=== PATIENT | male | born 1980 | race Hispanic/Latino ===

== ENCOUNTER → 2019-01-22 | Day surgery (SDC) | payer OTHER ==
[2019-01-21 11:59] LABS: BASOPHILS # (AUTO) 0.1 (0.0-0.1); BASOPHILS % 0.7 % (0.0-1.0); EOSINOPHILS # (AUTO) 0.2 (0.0-0.4); EOSINOPHILS % 2.5 % (0.0-6.0); HEMATOCRIT 43.2 % (38.2-49.6); HEMOGLOBIN 14.7 g/dL (14.0-18.0); LYMPHOCYTES # (AUTO) 2.8 (1.0-3.2); LYMPHOCYTES % 39.6 % (18.0-39.1); MEAN CORPUSCULAR HEMOGLOBIN 32.1 pg (28-32); MEAN CORPUSCULAR VOLUME 94.3 fL (81-99); MONOCYTES # (AUTO) 0.6 (0.2-0.8); MONOCYTES % 8.6 % (4.4-11.3); NEUTROPHILS # (AUTO) 3.5 (2.1-6.9); PLATELET COUNT 331 x10e3/uL (140-360); RED BLOOD COUNT 4.58 x10e6/uL (4.3-5.7); RED CELL DISTRIBUTION WIDTH 12.4 % (11.7-14.4)
--- NOTE | 2019-01-21 12:48 | Diagnostic Imaging Report ---
EXAM: CHEST 2 VIEWS DATE: 01/21/2019 10:53 AM INDICATION: Hallux valgus, left foot pain, preoperative evaluation COMPARISON: None FINDINGS: The trachea is midline. The lungs are symmetrically expanded without evidence for large focal consolidation, pneumothorax, or significant pleural effusion. The cardiomediastinal silhouette and pulmonary vasculature are within normal limits. No acute osseous abnormality is identified. The surrounding soft tissues are unremarkable. IMPRESSION: No acute cardiopulmonary process identified. Signed by: Dr. Dangelo Williamson MD on 01/21/2019 12:45 PM
[~2019-01-22] MED LIST: ACETAMINOPHEN 1000 MG/100 ML IV ONE; BETAMETHASONE DISODIUM PHOS 6 MG/ML VIAL ONE; BUPIVACAINE HCL 0.25% 10ML MPF VIAL INJ ONE; BUPIVACAINE HCL 0.5% INJ 30 ML VIAL INJ ONE; CEFAZOLIN SOD 1 GM/NS 50ML 50 ML IV ONE; DEXAMETHASONE SOD PHOS INJ 4 MG/ML VIAL ONE; FENTANYL CITRATE/PF 100MCG/2 ML INJ ONE; IBUPROFEN400 MG PO; KETOROLAC TROMETHAMINE 30 MG/ML VIAL ONE; LIDOCAINE HCL 1% LOCAL INJ 20 ML VIAL ONE; LISINOPRIL10 MG PO; MIDAZOLAM HCL 2 MG/2 ML VIAL ONE; MUPIROCIN 2% OINT 22 GM TUBE ONE; ONDANSETRON HCL INJ 2MG/ML 2ML 2 MG/ML VIAL ONE; SEVOFLURANE INHAL SOLN 250 ML PEN BTL ONE
--- OUTSIDE RECORDS SUMMARY | 2019-01-22 05:16 | XMS REPORT | Clinical Summary ---
Author Author [facility] Address Unknown Phone Unavailable Care Team Providers Care Clinical Appeals Rn Name Role Phone Lissette Rashid NP PCP Allergies Not on File Medications Not on file Active Problems Not on file Encounters Care Team Description Date Type Specialty Catrachito Munoz MD Kreit, Camil I, MD Lifelong obesity; Mixed hyperlipidemia; Type II diabetes mellitus with coma, uncontrolled; Essential hypertension, malignant 01/27/2018 Hospital Radiology Encounter Catrachito Munoz MD Lifelong obesity (Primary Dx); Mixed hyperlipidemia; Type II diabetes mellitus with coma, uncontrolled; Essential hypertension, malignant 01/23/2018 Transcribe Access Orders after 01/21/2018 Social History Date Tobacco Use Types Packs/Day Years Used Never Assessed Sex Assigned at Date Recorded Not on file Industry Job Start Date Occupation Not on file Not on file Not on file Travel End Travel History Travel Start No recent travel history available. Last Filed Vital Signs Not on file Plan of Treatment Health Maintenance Due Date Last Done Comments DIABETIC RETINAL EYE EXAM 1978 DIABETIC FOOT EXAM 1988 URINE MICROALBUMIN 1988 INFLUENZA VACCINE 12/18/2018 Procedures Comments Procedure Name Priority Date/Time Associated Diagnosis CT ABDOMEN W CONTRAST Routine 01/27/2018 Lifelong obesity 9:50 AM CDT Mixed hyperlipidemia Type II diabetes mellitus with coma, uncontrolled Essential hypertension, malignant after 01/21/2018 Results * CT Abdomen W Contrast (01/27/2018 9:50 AM CDT) Specimen Narrative Performed At EXAMINATION:CT ABDOMEN W CONTRAST [facility] CLINICAL HISTORY:E66.9 Obesityunspecified, E78.2 Mixed hyperlipidemia, E66.9 TECHNIQUE:Multiple axial images of the abdomen were obtained following intravenous administration of iodinated contrast. Sagittal and coronal computerized reformatted images were also obtained. CT scans are performed using radiation dose reduction techniques. Technical factors are evaluated and adjusted to ensure appropriate moderation of exposure. Automated dose management technology is applied to adjust radiation exposure while achieving a diagnostic quality image. COMPARISON:None. LUNG BASES: No suspicious lung nodule. Minimal atelectasis. No pleural effusion. Partially seen heart is within normal limits. ABDOMEN: 1. Liver: Liver is normal in size and contour. A 4 mm hypodensity in the liver segment 6 on series 2 image 53 is too small to characterize. No intrahepatic biliary ductal dilation. 2. Gallbladder: Gallbladder is normal in appearance. No extrahepatic biliary ductal dilation. 3. Spleen: Spleen is normal in size. 4. Pancreas: Pancreas is normal in appearance. No ductal dilation or evidence for mass lesion. 5. Adrenal Glands: Adrenals are normal in appearance. 6. Kidneys: Kidneys are normal in appearance. No mass lesion, hydronephrosis, or nephrolithiasis. 7. Nodes: No enlarged abdominal, mesenteric or retroperitoneal lymph node. 8. Bowel: Stomach, small bowel and colon are without acute anatomic abnormality. Appendix is normal. 9. Peritoneum: No free fluid or free air. No peritoneal nodules. 10.Retroperitoneum: Psoas muscles are symmetric. No retroperitoneal hemorrhage, fluid collection, or mass lesion. 11.Aorta: No aneurysm. PELVIS: 1.Bladder: Bladder is normal in apperance.. 2.: Prostate is possibly slightly enlarged at 3.5 x 5.2 cm. Seminal vesicles are within normal limits symmetric. 3.Nodes: No enlarged pelvic or inguinal lymph node. 4.Free Fluid: No pelvic free fluid. BONES: No destructive bone lesion. IMPRESSION: 1.No acute abdominopelvic process is appreciated. I personally reviewed the images and the resident's findings and agree with the final report. [facility]-[id number] Procedure Note [facility], Radiology Results Incoming - 01/27/2018 10:43 AM CDT EXAMINATION: CT ABDOMEN W CONTRAST CLINICAL HISTORY: E66.9 Obesity unspecified, E78.2 Mixed hyperlipidemia, E66.9 TECHNIQUE: Multiple axial images of the abdomen were obtained following intravenous administration of iodinated contrast. Sagittal and coronal computerized reformatted images were also obtained. CT scans are performed using radiation dose reduction techniques. Technical factors are evaluated and adjusted to ensure appropriate moderation of exposure. Automated dose management technology is applied to adjust radiation exposure while achieving a diagnostic quality image. COMPARISON: None. LUNG BASES: No suspicious lung nodule. Minimal atelectasis. No pleural effusion. Partially seen heart is within normal limits. ABDOMEN: 1. Liver: Liver is normal in size and contour. A 4 mm hypodensity in the liver segment 6 on series 2 image 53 is too small to characterize. No intrahepatic biliary ductal dilation. 2. Gallbladder: Gallbladder is normal in appearance. No extrahepatic biliary ductal dilation. 3. Spleen: Spleen is normal in size. 4. Pancreas: Pancreas is normal in appearance. No ductal dilation or evidence for mass lesion. 5. Adrenal Glands: Adrenals are normal in appearance. 6. Kidneys: Kidneys are normal in appearance. No mass lesion, hydronephrosis, or nephrolithiasis. 7. Nodes: No enlarged abdominal, mesenteric or retroperitoneal lymph node. 8. Bowel: Stomach, small bowel and colon are without acute anatomic abnormality. Appendix is normal. 9. Peritoneum: No free fluid or free air. No peritoneal nodules. 10. Retroperitoneum: Psoas muscles are symmetric. No retroperitoneal hemorrhage, fluid collection, or mass lesion. 11. Aorta: No aneurysm. PELVIS: 1. Bladder: Bladder is normal in apperance.. 2. : Prostate is possibly slightly enlarged at 3.5 x 5.2 cm. Seminal vesicles are within normal limits symmetric. 3. Nodes: No enlarged pelvic or inguinal lymph node. 4. Free Fluid: No pelvic free fluid. BONES: No destructive bone lesion. IMPRESSION: 1. No acute abdominopelvic process is appreciated. I personally reviewed the images and the resident's findings and agree with the final report. [facility]-[id number] Performing Organization Address City/State/Zipcode Phone Number [facility] [address] [place] [address] after 01/21/2018 Insurance Type Payer Benefit Subscriber ID Effective Phone Address Plan / Dates Group HMO AETNA AETNA xxxxxxxxxx 2007- HMO,POS,EP Present O, MC/EC Advance Directives For more information, please contact: [phone] Patient Ethologist Explanation Type Date Recorded Advance Directives, Living Will and Medical Power of Auditor Medical Claims
--- OUTSIDE RECORDS SUMMARY | 2019-01-22 05:16 | XMS REPORT ---
Author [facility] Address Unknown Phone Unavailable Care Team Providers Care Reporter Name Role Phone NELL HERRERA Unavailable Unavailable Problems This patient has no known problems. Allergies, Adverse Reactions, Alerts This patient has no known allergies or adverse reactions. Medications This patient has no known medications. Results Test Description Test Time Test Comments Text Results Atomic Results Result Comments CHEST 2 VIEWS 2019-01-21 12:44:00 [place] [address] Patient Name: BAKARI TOSCANO MR #: [id number] : 1980 Age/Sex: 38/M Req #: [id number] Adm Physician: Ordered by: NELL HERRERA DPM Report #: [id number] Location: OR Room/Bed: Procedure: [id number] DX/CHEST 2 VIEWS Exam Date: 01/21/19 Exam Time: 1147 REPORT STATUS: Signed EXAM: CHEST 2 VIEWS DATE: 01/21/2019 10:53 AM I NDICATION: Hallux valgus, left foot pain, preoperative evaluation COMPARISON: None FINDINGS: The trachea is midline. The lungs are symmetrically expanded without evidence for large focal consolidation, pneumothorax, or significant pleural effusion. The cardiomediastinal silhouette and pulmonary vasculature are within normal limits. No acute osseous abnormality is identified. The surrounding soft tissues are unremarkable. IMPRESSION: No acute cardiopulmonary process identified. Signed by: Dr. Dangelo Williamson MD on 01/21/2019 12:45 PM Dictated By: DANGELO WILLIAMSON MD 1245 Transcribed By: BARB on 01/21/19 1245 COPY TO: NELL HERRERA DPM
[2019-01-22 09:50] VITALS: BP 146/93
--- NOTE | 2019-01-22 09:58 | Diagnostic Imaging Report ---
EXAMINATION: FOOT LEFT AP LAT INDICATION: Postoperative COMPARISON: None FINDINGS: There are post surgical findings of the distal left first metatarsal status post osteotomy and hardware fixation. Alignment is near-anatomic. No unexpected fracture. K wire fixation traverses the fourth interphalangeal joints. Drain in place. Overlying gauze material obscures fine bony detail. IMPRESSION: Postoperative findings of the left foot as above. Signed by: Phillip Nance MD on 01/22/2019 9:54 AM
--- NOTE | 2019-01-22 14:46 | Operative Report ---
DATE OF PROCEDURE: 01/22/2019 SURGEON: Alonzo Bradford DPM PREOPERATIVE DIAGNOSES: 1. Painful hallux valgus deformity, left foot. 2. Painful contracted hammertoes 4th digit, left. 3. Painful contracted hammertoes 5th digit, left. 4. Painful plantar fasciitis with heel spur syndrome, left foot. 5. Tarsal tunnel syndrome, left foot. POSTOPERATIVE DIAGNOSES: Confirmed. OPERATIVE PROCEDURES: 1. Fabien bunionectomy with screw fixation of left foot. 2. Arthroplasty 4th digit with K-wire fixation of 4th toe, left foot. 3. Arthroplasty 5th digit, left foot. 4. Resection of plantar calcaneal heel spur, left foot. 5. Neurolysis tibial nerve, left foot. 6. Neurolysis medial plantar nerve, left foot. 7. Neurolysis lateral plantar nerve, left foot. 8. Intraoperative use of fluoroscopy. 9. Trigger point shot of cortisone. 10. Application of posterior splint. ANESTHESIA: General. HEMOSTASIS: Pneumatic thigh tourniquet at 350 mmHg. PROCEDURE IN DETAIL: The patient was taken into the operating room and placed on the operating table in supine position. Following induction of general anesthesia by the anesthesiologist, Webril wraps were placed on the patient's left thigh, followed by application of left thigh tourniquet. The left lower extremity was then prepped and draped in the usual aseptic manner and following procedures then performed. Procedure #1: Fabien bunionectomy with screw fixation, left foot. Attention was directed to the dorsomedial aspect of the 1st MPJ, where a 6 cm linear incision was performed. Incision was deepened down to the joint capsule. Longitudinal capsulotomy was then performed exposing the dorsomedial exostosis of the 1st metatarsal head. Via the use of an oscillating saw, dorsomedial exostosis was excised from the operation site in toto. A V-osteotomy was then performed from medial to lateral. Capital fragment was then transpositioned laterally upon adequate surgical and anatomical reduction utilizing proper AO technique. A 2.0, 16 mm cortical screw in conjunction with a buried 0.045 K-wire was used to achieve stability of osteotomy site. A redundant bone medially was excised via the use of an oscillating saw and rotating bur. Procedures #2 and 3: Arthroplasty 4th and 5th digits with K-wire fixation of 4th. Attention was then directed to the dorsal aspect of 4th and 5th toes, where a 3 cm linear incision was performed. Incision was deepened down to the joint capsule. Transverse capsulotomy was then performed exposing the head of the proximal phalanx. Via the use of an oscillating saw, head of the proximal phalanxes were excised from the operation site in toto. All rough and bony edges were rasped smooth. Then, 4th toe was still noted to be contracted, so a 0.045 K-wire was introduced up to metatarsophalangeal joint to achieve proper anatomical reduction. Procedure #4: Resection of plantar calcaneal heel spur, left foot. Attention was then directed to the medial aspect of the left heel, where a 4 to 5 cm linear incision was performed. Incision was deepened down to the plantar fascia level. The medial one-half of the plantar fascia was then released exposing the plantar calcaneal heel spur. Via the use of a reciprocating bur, plantar calcaneal spur was excised from the operation site in toto. All rough and bony edges were rasped smooth and felt with the finger with no evidence of any type of bony protrusion. Procedures #5, 6, and 7: Neurolysis tibial nerve, neurolysis medial plantar nerve, and neurolysis lateral plantar nerve. Attention was then directed to the medial aspect of the left tarsal canal, where a curvilinear incision was performed down to the praneeth pedis. The incision was deepened down to the flexor retinaculum utilizing meticulous dissection. The flexor retinaculum was then cut and neurolysis of the tibial nerve was then performed via blunt dissection. The incision was deepened down to the praneeth pedis until the medial and lateral plantar nerves were divided and also neurolysis within the praneeth pedis itself. All areas were then copiously flushed with antibiotic solution and suction. Procedure #8: Intraoperative use of fluoroscopy was then used to make sure proper alignment and fixation was achieved. Closure was then obtained utilizing 3-0 Vicryl, 4-0 Vicryl, and 4-0 nylon for capsule, subcutaneous tissue, and skin respectively after properly and copiously flushing the areas with saline. Procedure #9: Trigger point shot of cortisone was then given to the 1st and 4th interspace of the left foot and also the left heel and medial tarsal canal. Then, approximately 15 to 20 mL of 0.5% plain Marcaine plus 10 mL of 1% Xylocaine plain were used to achieve local anesthesia of above-mentioned surgical areas. Sterile dressing was applied. Upon release of the thigh tourniquet, blood hyperemia was noted immediate to all digits of the patient's left foot. Prior to closure, a TLS drain was inserted into the heel area to prevent a hematoma formation. Procedure #10: Application of posterior splint. A properly placed posterior splint was then applied keeping the foot at 90 degrees with respect to the leg to try and prevent any postop complications. The patient was then transferred from the OR to recovery room with vital signs stable and neurovascular status intact. No intraoperative complications were encountered. Blood loss from the surgery was minimal. The patient to remain nonweightbearing with the aid of crutches, keep his foot elevated and is to apply an ice pack to the ankle joint area. SAL Barry/PILO /[id number]
== END | disposition home or self-care (01) ==
LOC: OR 05:09
PROVIDERS: ATTEND Podiatrist Foot Surgery
DX: M20.12 Hallux valgus (acquired), left foot (principal); M20.42 Other hammer toe(s) (acquired), left foot; M77.32 Calcaneal spur, left foot; M72.2 Plantar fascial fibromatosis; G57.52 Tarsal tunnel syndrome, left lower limb; G58.8 Other specified mononeuropathies; R73.03 Prediabetes; G47.33 Obstructive sleep apnea (adult) (pediatric); I10 Essential (primary) hypertension; Z01.810 Encounter for preprocedural cardiovascular examination; Z01.812 Encounter for preprocedural laboratory examination; Z01.818 Encounter for other preprocedural examination
CPT/HCPCS: 28035; 28119; 28285 ×2; 28296; 36415 ×2; 64704 ×2; 71046; 73620; 82948; 85025; 93005; J0131; J0690; J0720; J1100; J1885; J2001; J2250; J2405; J3010; C1713

== ENCOUNTER → 2019-04-29 | Day surgery (SDC) | payer OTHER ==
[2019-04-20 13:54] LABS: ANION GAP 11.4 mmol/L (8-16); BLOOD UREA NITROGEN 11 mg/dL (7-26); BUN/CREATININE RATIO 13 (6-25); CALCIUM 10.1 mg/dL (8.4-10.2); CARBON DIOXIDE 25 mmol/L (22-29); CHLORIDE 105 mmol/L (98-107); CREATININE, SERUM 0.88 mg/dL (0.72-1.25); EST GLOMERULAR FILTRATION RATE > 60 ML/MIN (60-); GLUCOSE 124 mg/dL (74-118); POTASSIUM 3.4 mmol/L (3.5-5.1); SODIUM 138 mmol/L (136-145)
[~2019-04-29] MED LIST changes: +ATORVASTATIN CA20 MG PO; -BUPIVACAINE HCL 0.25% 10ML MPF VIAL INJ ONE; +CEFAZOLIN SOD 1 GM/NS 50ML 100 ML IV ONE; -CEFAZOLIN SOD 1 GM/NS 50ML 50 ML IV ONE; +LIDOCAINE HCL 2% LOCAL INJ 5 ML SDV VIAL INJ ONE; +PROPOFOL IV EMULSION 10 MG/ML 20 ML VIAL ONE
--- NOTE | 2019-04-29 09:42 | Diagnostic Imaging Report ---
EXAM: FOOT RIGHT AP LAT DATE: 04/29/2019 9:06 AM INDICATION: Postoperative COMPARISON: None FINDINGS: There postsurgical changes the distal aspect of the first metatarsal with fixation hardware. Alignment is near anatomic. Fixation wire noted over the fourth digit. Surgical drainage catheter noted in place. There is no evidence for acute fracture. IMPRESSION: Postoperative changes of the right foot as detailed above. Signed by: Dr. Dangelo Williamson MD on 04/29/2019 9:38 AM
[2019-04-29 10:00] VITALS: BP 136/85
--- NOTE | 2019-04-29 11:04 | Operative Report ---
DATE OF PROCEDURE: 04/29/2019 SURGEON: Alonzo Bradford DPM PREOPERATIVE DIAGNOSES: 1. Painful hallux valgus deformity, right foot. 2. Painful contracted hammertoe, 4th digit, right foot. 3. Painful contracted hammertoe, 5th digit, right foot. 4. Painful plantar fasciitis with heel spur syndrome. 5. Painful tarsal tunnel syndrome. POSTOPERATIVE DIAGNOSES: Confirmed. OPERATIVE PROCEDURES: 1. Fabien bunionectomy with screw fixation, right foot. 2. Arthroplasty of 4th digit with K-wire fixation. 3. Arthroplasty of 5th digit. 4. Resection of plantar calcaneal heel spur. 5. Neurolysis, tibial nerve. 6. Neurolysis, medial plantar nerve. 7. Neurolysis, lateral plantar nerve. 8. Intraoperative use of fluoroscopy. 9. Trigger point shot of cortisone. 10. Application of posterior splint. ANESTHESIA: General. HEMOSTASIS: Pneumatic thigh tourniquet at 350 mmHg. PROCEDURE IN DETAIL: The patient was taken into the operating room and placed on the operating table in supine position. Following induction of general anesthesia by the anesthesiologist, Webril wraps were placed on the patient's right thigh, followed by application of right thigh tourniquet. The right lower extremity was then prepped and draped in the usual aseptic manner and following procedures were then performed: Procedure #1: Fabien bunionectomy with screw fixation, right foot. Attention was directed to the dorsal medial aspect of the 1st MPJ, where a 6 cm linear incision was performed. Incision was deepened down to the joint capsule. Longitudinal capsulotomy was then performed exposing the dorsal medial exostosis of the 1st metatarsal head. Via use of an oscillating saw, dorsal medial exostosis was excised from the operation site in toto. A V-osteotomy was then performed from medial to lateral. Capital fragment was then transpositioned laterally upon adequate surgical and anatomic reduction. Utilizing proper AO technique, a 2.0, 16 mm cortical screw in conjunction with a buried 0.045 K-wire was introduced to achieve proper fixation. All redundant bone medially was excised via the use of an oscillating saw and rotating bur. Procedures 2 and 3: Arthroplasty of 4th and 5th digits with K-wire fixation of 4th. Attention was then directed to the dorsal aspect of the above-mentioned toes overlying the proximal interphalangeal joint, where a 3 cm linear incision was performed. Incision was then deepened down to the joint capsule. Transverse capsulotomy was then performed exposing the head of the proximal phalanx. Via the use of an oscillating saw, head of the proximal phalanxes were excised from the operation site in toto. All rough and bony edges were rasped smooth. Fourth toe was still noted to be contracted, so a 0.045 K-wire was introduced up to metatarsophalangeal joint to achieve proper anatomic reduction. Procedure #4: Resection of plantar calcaneal spur, right foot. Attention was then directed to the medial aspect of the right heel, where a 6 cm linear incision was performed. Incision was deepened down to the plantar fascia level. Medial half of the plantar fascia was resected from its insertion site, exposing the plantar calcaneal spur. Via the use of a reciprocating rasp, the spur was excised from the operation site in toto. All rough and bony edges were rasped smooth. Procedures 5, 6, and 7: Neurolysis of the tibial nerve, neurolysis of medial plantar nerve, and neurolysis of lateral plantar nerve. Attention was then directed to the medial aspect of the right tarsal canal, where a curvilinear incision was performed posterior to the medial malleolus. The incision was then carried down to the flexor retinaculum and utilizing meticulous dissection, the flexor retinaculum was then cut exposing the tibial nerve. Via the use of a blunt dissection, the tibial nerve was then released from any soft tissue adhesions. The incision was then carried to the praneeth pedis. The medial and lateral plantar nerves were noted to divide and were also released from any adhesions via blunt dissection. All areas were then copiously flushed with sterile antibiotic solution and suctioned. Procedure #8: Intraoperative use of fluoroscopy then used to make sure proper alignment fixation was achieved with adequate resection of plantar calcaneal spur. Closure was then obtained utilizing 3-0 Vicryl, 4-0 Vicryl, and 4-0 nylon for capsule, subcutaneous tissue, and skin respectively Procedure #9: Trigger point shot of cortisone was then given to the 1st interspace, 4th interspace, medial aspect of the right heel, and tarsal canal. Then, approximately 20 mL of 0.5% plain Marcaine plus 10 mL of 1% Xylocaine plain were used to achieve local anesthesia of above-mentioned surgical area. Sterile dressing was applied. Upon release of the thigh tourniquet, blood hyperemia was noted immediate to all digits of the patient's right foot. Procedure #10: Application of posterior splint. A properly placed posterior splint was then applied keeping the foot at 90 degrees with respect to the leg to try for any type of postop complications. The patient was then transferred from the OR to recovery room with vital signs stable and neurovascular status intact. No intraoperative complications were encountered. Blood loss from the surgery was minimal. The patient is to remain nonweightbearing with the aid of crutches, keep his foot elevated, and is to apply an ice pack to the ankle joint area. SAL Barry/PILO /[id number]
== END | disposition home or self-care (01) ==
LOC: OR 05:37
PROVIDERS: ATTEND Podiatrist Foot Surgery
DX: M20.11 Hallux valgus (acquired), right foot (principal); M20.41 Other hammer toe(s) (acquired), right foot; M77.31 Calcaneal spur, right foot; M79.671 Pain in right foot; M79.2 Neuralgia and neuritis, unspecified; E11.9 Type 2 diabetes mellitus without complications; G47.33 Obstructive sleep apnea (adult) (pediatric); I10 Essential (primary) hypertension; Z01.810 Encounter for preprocedural cardiovascular examination; Z01.812 Encounter for preprocedural laboratory examination
CPT/HCPCS: 28119; 28285 ×2; 28296; 36415; 64704 ×2; 73620; 80048; 93005; J0131; J0690; J0720; J1100; J1885; J2001 ×2; J2250; J2405; J2704; J3010; C1713